=== PATIENT | male | born 1955 | race Asian ===

== ENCOUNTER 2021-02-08 15:21 | Emergency (ER) | payer OTHER ==
[2021-02-08 15:39] VITALS: BMI 22.8
[2021-02-08] MEDS ORDERED: ACETAMINOPHEN 500 MG TABLET (FP) PO ONE (17:44)
[2021-02-08] MEDS ORDERED: LIDOCAINE 5% TOPICAL PATCH TP ONE (17:44)
[2021-02-08] MEDS ORDERED: ACETAMINOPHEN 325 MG TABLET (FP) ONE (18:07)
[2021-02-08] MEDS ORDERED: LIDOCAINE 5% TOPICAL PATCH ONE (18:08)
[2021-02-08 18:17] VITALS: BP 112/72; PULSE 92; TEMP 98.2
[2021-02-09] MEDS ORDERED: LIDOCAINE PATCH REMOVAL MC ONE (06:00)
== END 2021-02-08 19:01 | disposition home or self-care (01) ==
LOC: JER 15:21
DX: M25.512 Pain in left shoulder (principal)
CPT/HCPCS: 71045-TC-FY; 71101-TC-LT-FY; 72100-TC-FY; 73030-TC-LT-FY; 93005; 93010; 99285-25